=== PATIENT | male | born 1990 | race Caucasian/White ===

== ENCOUNTER 2021-06-20 21:13 | Inpatient (IN) | payer MEDICAID, SELFPAY ==
[2021-06-20 21:15] VITALS: BP 97/54; PULSE 51; RESP 16; TEMP 36; O2SAT 100; BMI 20.4
[2021-06-20] MEDS: Naloxone 2 MG/2 ML Syringe NASAL ×2 (22:06→22:12)
--- NOTE | 2021-06-20 22:10 | ED.RN ---
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 pt was unresponsive lying in bed and pulse ox 91% on R.A. pt received 2nd nasal narcan and pulse ox 100% at this time. pt sitting up and talking.
--- NOTE | 2021-06-20 22:32 | CM.ED ---
SW Note SW Referral : Case Find SW Referral Reason: Detox SW went into patient's room to meet with patient. Patient's mother was in room. She said that patient outside with sister. Mother said that patient uses xanax and percocet. Mother stated that she would pick patient up when he has completed detox. Mother, Jo Ann Arroyo number is [phone]. Mother said that she wants patient's sister, Hermila De, to also be listed and her number is [phone]. Hermila said that [facility] as she and her will not allow him in the house. Hermila said that patient has been using fentanyl also. SW explained in general terms the detox program. SW waited for patient to come back and he came back but then went to the bathroom. Patient was in bathroom excessive amount of time so SW left. Per RN patient used and Narcan was administered. SW did not get opportunity to speak to patient due to his drug use while in the hospital. engineer technical staff will need to call Treatment Navigator for patient. Plan: RAMP program Yoli FLORES
--- NOTE | 2021-06-20 23:21 | EKG12_ITS ---
Test Reason : OVERDOSE Blood Pressure : / mmHG Vent. Rate : 052 BPM Atrial Rate : 052 BPM P-R Int : 120 ms QRS Dur : 094 ms QT Int : 420 ms P-R-T Axes : 074 056 036 degrees QTc Int : 390 ms Sinus bradycardia with sinus arrhythmia Otherwise normal ECG Confirmed by TERESA MOON, EBONI ([id number]), makeup editor SKYE LEON ([id number]) on 06/23/2021 9:36:52 AM Referred By: Confirmed By:EBONI MOORE MD
--- NOTE | 2021-06-20 23:21 | EDS_ITS ---
HPI History of Present Illness Chief Complaint: Substance Abuse Informant: patient Narrative Narrative: 31-year-old male from [place] presents the emergency room asking for detox from opiates and benzos. Patient states that he was a overdose at [facility] yesterday. He left there took some Xanax. Apparently his mom and his sister brought him down here for detox. He tells me that he has not used just prior to arrival or while he is in the department. He states that he is tired of waking up sick and is not pleased that he has lost his children and his relationships with his family PFSH PFSH no medical history Allergy/AdvReac Type Severity Reaction Status Date / Time No Known Allergies Allergy Verified 06/20/21 21:15 no surgical history Social History (Updated 06/20/21 @ 23:[address] Jose Hsu, ) Smoking Status: Current every day smoker tobacco type: cigarettes substance use type: opiates and other details: Benzodiazepines ROS ROS ED Constitutional Constitutional ED: Denies chills or weight loss Eyes Eyes: Denies change in vision or diplopia ENT ENT ED: Denies ear pain, rhinorrhea or sore throat Cardiovascular Cardiovascular: Denies chest pain, orthopnea, palpitations or racing heartbeat Respiratory/Chest Respiratory/Chest: Denies cough, dyspnea or orthopnea Gastrointestinal Gastrointestinal: Denies abdominal pain, diarrhea, nausea or vomiting Genitourinary Genitourinary ED: Denies dysuria, hematuria or urinary frequency Musculoskeletal Musculoskeletal: Denies arthralgias or myalgias Integumentary Denies abscess or rash Neurologic Neurologic: Denies headache(s) or weakness Psychiatric Psychiatric: Denies anxiety, depression, suicidal ideation or suicidal thoughts Endocrine Endocrinology: Denies polydipsia, polyphagia or polyuria Allergic/Immunologic Allergic/Immunologic ED: Denies mouth swelling, tongue swelling or urticaria EXAM Physical Exam Narrative Exam Narrative: Patient has shallow breathing and is falling asleep after speaking 1 or 2 words. Const Vital Signs: 06/20/21 21:15 06/20/21 23:40 Temperature 96.8 F L Temperature Source Temporal Pulse Rate 51 L 52 L Respiratory Rate 16 16 Blood Pressure 97/54 L 98/60 Blood Pressure Mean 68 72 Pulse Ox 100 100 Oxygen Delivery Method Room Air Room Air Positive well nourished and well developed General Appearance ED: well developed HEENT Reports normocephalic, head/scalp atraumatic and moist mucous membranes Eyes Eyes Narrative: Patient has pinpoint pupils Neck no lymphadenopathy, supple and no JVD Resp normal respiratory effort and clear to auscultation bilaterally Cardio regular rate, regular rhythm and no murmurs GI normal to inspection, nondistended, normoactive bowel sounds and non-tender Palpation: soft Back/Spine no CVA tenderness and normal ROM Extremity normal to inspection General Extremety ED: Negative for edema General Extremity: Negative for edema Neuro CN's II-XII intact bilaterally Motor Exam: strength 5/5 throughout Psych mental status grossly normal Mood & Affect: Negative for depressed or tearful Skin no rashes or lesions noted and no wounds MDM MDM MDM Narrative Medical decision making narrative: Patient has pinpoint pupils shallow breathing and falls asleep very easily. I suspect that he recently used an opiate. He received a total of 4 mg of nasal Narcan. This allowed him to be more awake to talk with us. He is agreeable to the rules of the program. We will medically clear him and I will speak with the hospitalist Lab Data Attestation: I reviewed the patient's lab results. Labs: Laboratory Results - last 24 hr 06/20/21 06/20/21 22:00 23:30 WBC 6.7 RBC 4.27 L Hgb 11.8 L Hct 36.6 L MCV 85.7 MCH 27.6 MCHC 32.2 RDW Std Deviation 40.4 RDW Coeff of Kathleen 13.1 Plt Count 279 MPV 10.1 Immature Gran % (Auto) 0.300 Neut % (Auto) 52.7 Lymph % (Auto) 32.7 Ashley % (Auto) 11.2 H Eos % (Auto) 2.8 Baso % (Auto) 0.3 Absolute Neuts (auto) 3.5 Absolute Lymphs (auto) 2.19 Nucleated RBC % 0 Urine Opiates Screen NEGATIVE Urine Methadone Screen NEGATIVE Ur Barbiturates Screen NEGATIVE Ur Phencyclidine Scrn NEGATIVE Ur Amphetamines Screen NEGATIVE U Methamphetamin-MDMA NEGATIVE U Benzodiazepines Scrn POSITIVE H Urine Cocaine Screen NEGATIVE U Cannabinoids Screen POSITIVE H Ur Drug Screen Comment EKG Initial EKG: Attestation: I personally reviewed and interpreted this EKG as follows: Comments: EKG is sinus bradycardia at a rate of 52 bpm. Discharge Plan Dx/Rx/DC Orders Clinical Impression: Opiate abuse, continuous, Benzodiazepine abuse Disposition Disposition: Acute Care Hospital [facility]
[2021-06-20 23:40] VITALS: BP 98/60; PULSE 52; RESP 16; O2SAT 100
[2021-06-20 23:46] LABS: Amphetamine Urine VISTA NEGATIVE (<1000 ng/mL); Barbiturate Urine VISTA NEGATIVE (< 200 ng/mL); Benzodiazepine Urine VISTA POSITIVE (< 200 ng/mL); Cocaine Urine VISTA NEGATIVE (< 300 ng/mL); Ecstacy Urine VISTA NEGATIVE (< 500 ng/mL); Methadone Urine VISTA NEGATIVE (< 300 ng/mL); PCP Urine VISTA NEGATIVE (< 25 ng/mL); THC Urine VISTA POSITIVE (< 50 ng/mL); Vista UDS pH Range 6
[2021-06-20 23:46] LABS: Absolute Lymphocyte Count 2.19 X10^3/uL (0.83-4.51); Absolute Neutrophil Count 3.5 X10^3/uL (2.0-7.7); Basophil# 0.02 X10^3/uL; Basophil% 0.3 % (0-1); Eosinophil# 0.19 X10^3/uL; Eosinophils% 2.8 % (0-5); Hematocrit 36.6 % (40-54); Hemoglobin 11.8 g/dL (13.0-16.5); Lymphocyte # 2.19 X10^3/ul (0.83-4.51); Lymphocyte % 32.7 % (19-41); Mean Corp Hgb Conc 32.2 g/dL (32-36); Mean Corpuscular Hgb 27.6 pg (27.0-32.0); Mean Corpuscular Volume 85.7 fL (80-94); Mean Platelet Vol. 10.1 fl (6.2-12.0); Monocyte# 0.75 X10^3/uL; Monocyte% 11.2 % (0-10); NRBC Flagged by Analyzer 0 % (0-5); Neutrophil # 3.53 X10^3/uL (2.7-7.7); Neutrophil % 52.7 % (47-70); Platelet Count 279 K/mm3 (150-450); RBC Distribution Width CV 13.1 % (11.6-14.6); RBC Distribution Width SD 40.4 fl (35.1-43.9); Red Blood Count 4.27 M/mm3 (4.6-6.2); White Blood Count 6.7 K/mm3 (4.4-11.0)
[2021-06-21] VITALS (10 sets, daily range): BP systolic 81–101; BP diastolic 41–70; PULSE 50–64; RESP 14–18; TEMP 36.1–36.9; O2SAT 94–100; BMI 20.5
[2021-06-21 00:24] LABS: ALB/GLOB Ratio 0.9 RATIO (0.9-2.4); AST(SGOT) 32 U/L (15-37); Alanine Aminotransfer ALT/SGPT 22 U/L (16-61); Albumin, Serum 3.1 g/dL (3.2-5.0); Alkaline Phosphatase 75 U/L (45-117); Anion Gap 4 (5-15); BUN 10 mg/dL (7-18); BUN/Creat Ratio 10.5 RATIO (10-20); Calcium,Total 8.3 mg/dL (8.5-10.1); Chloride 105 mmol/L (98-107); Creatinine, Serum 0.95 mg/dL (0.70-1.30); EST Glomerular Filtration Rate 98 mL/min (>60); Est Glom Filt Rate - Afr Amer 118 mL/min (>60); Estimated Creatinine Clearance 99.16 ml/min; Globulin 3.3 g/dL (2.2-4.2); Glucose 81 mg/dL (74-106); Potassium 3.7 mmol/L (3.5-5.1); Protein, Total 6.4 g/dL (6.4-8.2); Sodium Level 140 mmol/L (136-145)
[2021-06-21 00:57] LABS: Alcohol, Blood (Medical)-Serum < 3.0 mg/dL
[2021-06-21 01:24] LABS: Mucous, Urine 0 SEEN /hpf (<or=2+); Red Blood Cells-Urine 0 SEEN /hpf (0-5); Squamous Epithelial Cells - UA 0 SEEN /hpf (0-5); White Blood Cells 0 SEEN /hpf (0-5)
[2021-06-21 01:39] LABS: Color, Urine Yellow (Yellow); Glucose, Dipstick Normal (Normal); Ketone-Dipstick Negative (Negative); Leukocyte Esterase-Dipstick Negative /ul (Negative); Nitrite-Dipstick Negative (Negative); Occult Blood-Urine Negative /ul (Negative); Protein-Dipstick 15 mg/dl (Negative); Urine Bilirubin Dipstick Negative (Negative); Urine Clarity Clear (Clear); Urine Urobilinogen 1 mg/dl (Normal)
[2021-06-21 02:03] LABS: Bacteria RARE /hpf (None Seen)
--- NOTE | 2021-06-21 03:01 | HP.PCM.HOS_ITS ---
HPI - General General Date of Admission: 06/21/21 HPI Narrative KIRK MOONEY, is a 31 M with history of chronic opioid use, fentanyl and snorting came to ER for acute opioid withdrawal treatment. Uses fentanyl snorting on a regular basis and takes 2 mg of Xanax once a month or sometimes twice a month. Patient was brought to ER by his mother and sister for treatment of withdrawal symptoms. Patient is having nasal congestion, sinus drainage. Patient failed treatment about 2 years ago in [place]. His vitals in the ER significant for bradycardia, heart rate 51/min. Labs reviewed. U tox positive of cannabinoids. Twelve-lead EKG sinus bradycardia at 52 bpm. [facility] Medical History Smoker Substance abuse Home Medications buprenorphine-naloxone 2 tab SUBLINGUAL DAILY 06/21/21 [History Last Taken 06/20/21] Allergy/AdvReac Type Severity Reaction Status Date / Time No Known Allergies Allergy Verified 06/20/21 21:15 Social History Smoking Status: Current every day smoker tobacco type: cigarettes substance use type: opiates and other details: Benzodiazepines ROS ROS Narrative Constitutional: Reports fatigue and weakness HEENT: Nasal congestion. Conjunctival irritation. Respiratory/Chest: Denies chest pain, shortness of breath at rest or with exertion Gastrointestinal: Denies coffee ground emesis, hematemesis or vomiting Genitourinary: Denies burning urination or new urinary tract symptoms Musculoskeletal: Diffuse muscle aches and pain Neurologic: Denies seizure-like activity skin: No ulcer. No rash Endocrinology: Reports systems reviewed and no addt'l complaints, except as documented Hematologic/Lymphatic: Reports systems reviewed and no addt'l complaints, except as documented Rest 12 ROS are negative except as mentioned in HPI Vital Signs Vital Signs Vital Signs: 06/20/21 21:15 06/20/21 23:40 06/21/21 01:53 Temperature 96.8 F L 97 F L Temperature Source Temporal Temporal Pulse Rate 51 L 52 L 58 L Respiratory Rate 16 16 14 Blood Pressure 97/54 L 98/60 92/58 L Blood Pressure Mean 68 72 69 Blood Pressure Source Blood Pressure Position Blood Pressure Location Pulse Ox 100 100 96 Oxygen Delivery Method Room Air Room Air 06/21/21 02:45 Temperature 98.5 F Temperature Source Oral Pulse Rate 52 L Respiratory Rate 16 Blood Pressure 91/58 L Blood Pressure Mean 69 Blood Pressure Source Monitor Blood Pressure Position Supine Blood Pressure Location Right Arm Pulse Ox 100 Oxygen Delivery Method Room Air Weight Weight: 138 lb 14.259 oz Body Mass Index (BMI) 20.5 Physical Exam Narrative General: Alert, Oriented x3, Cooperative HEENT: Atraumatic, PERRLA, EOMI, Normocephalic Oral: Left and right lower molar dental caries. Neck: Supple, No JVD, Negative Carotid Bruits Lungs: Air entry equal in bilateral lung bases. No crepitation/rhonchi Cardiovascular: Regular rate, Regular Rhythm, Normal S1, Normal S2, No murmurs Abdomen: Bowel Sounds Present, Soft, Non Tender, Non-Distended : No renal angle tenderness. No suprapubic tenderness. Extremities: No edema, Capillary Refill Less than 3 Seconds Skin: No rashes, No breakdown Musculoskeletal: No Tenderness to Palpation of Joints or Extremities Neurological: Cranial nerves II-XII grossly intact, DTR 2+/4 and Symmetrical, Neuro grossly intact Psych/Mental Status: Restless and anxious. Results Lab / Micro Data Result Diagrams: 06/20/21 23:30 06/20/21 23:30 Labs: Laboratory Results - last 24 hr 06/20/21 22:00: Urine Opiates Screen NEGATIVE, Urine Methadone Screen NEGATIVE, Ur Barbiturates Screen NEGATIVE, Ur Phencyclidine Scrn NEGATIVE, Ur Amphetamines Screen NEGATIVE, U Methamphetamin-MDMA NEGATIVE, U Benzodiazepines Scrn POSITIVE H, Urine Cocaine Screen NEGATIVE, U Cannabinoids Screen POSITIVE H, Ur Drug Screen Comment 06/20/21 22:00: Urine Color Yellow, Urine Clarity Clear, Urine pH 6.0, Ur Specific [place] 1.020, Urine Protein 15 H, Urine Glucose (UA) Normal, Urine Ketones Negative, Urine Occult Blood Negative, Urine Nitrite Negative, Urine Bilirubin Negative, Urine Urobilinogen 1 H, Ur Leukocyte Esterase Negative, Urine RBC 0 SEEN, Urine WBC 0 SEEN, Ur Squamous Epith Cells 0 SEEN, Urine Bacteria RARE, Urine Mucus 0 SEEN 06/20/21 23:30: WBC 6.7, RBC 4.27 L, Hgb 11.8 L, Hct 36.6 L, MCV 85.7, MCH 27.6, MCHC 32.2, RDW Std Deviation 40.4, RDW Coeff of Kathleen 13.1, Plt Count 279, MPV 10.1, Immature Gran % (Auto) 0.300, Neut % (Auto) 52.7, Lymph % (Auto) 32.7, Laurel % (Auto) 11.2 H, Eos % (Auto) 2.8, Baso % (Auto) 0.3, Absolute Neuts (auto) 3.5, Absolute Lymphs (auto) 2.19, Nucleated RBC % 0 06/20/21 23:30: Sodium 140, Potassium 3.7, Chloride 105, Carbon Dioxide 31.0, Anion Gap 4 L, BUN 10, Creatinine 0.95, Estim Creat Clear Calc 99.16, Est GFR (MDRD) Af Amer 118, Est GFR (MDRD) Non-Af 98, BUN/Creatinine Ratio 10.5, Glucose 81, Calcium 8.3 L, Total Bilirubin 0.30, AST 32, ALT 22, Alkaline Phosphatase 75, Total Protein 6.4, Albumin 3.1 L, Globulin 3.3, Albumin/Globulin Ratio 0.9 06/20/21 23:30: Ethyl Alcohol < 3.0 Assessment & Plan Assessment/Plan (1) Acute hyperactive opioid withdrawal delirium: PLAN: This is a 31-year-old gentleman came for medical stabilization of acute opioid withdrawal syndrome 1. Acute opioid withdrawal syndrome with history of chronic opioid use disorder with dependence and tolerance: Patient is being admitted in bedside. On buprenorphine based other supportive medications for medical stabilization of withdrawal syndrome. Patient counseled to quit opioid use. Consult 184 rehab plan. 2. Chronic benzodiazepine use disorder: He uses 2 mg Xanax once a month sometimes twice a month. Did not warrant medical treatment. 3. Chronic marijuana use and cigarette smoking: On nicotine patch. VTE prophylaxis: Low risk. No prophylaxis indicated. Early ambulation encouraged Charges/Coding Visit Charges Inpatient E&M: 36538 Init Hosp L3
[2021-06-21 04:06] LABS: International Normalized Ratio 1.1; Prothrombin Time (Protime)PT. 13.1 SECONDS (11.7-14.9)
[2021-06-21] MEDS: hydrOXYzine PAM 25 MG Capsule 50 MG PO ×2 (09:38→17:40)
[2021-06-21] MEDS: Dicyclomine 10 MG Capsule 20 MG PO (09:39)
[2021-06-21] MEDS: cloNIDine HCl 0.1 MG Tablet PO (09:39)
[2021-06-21] MEDS: Methocarbamol 750 MG Tablet 1500 MG PO ×2 (09:39→17:40)
[2021-06-21] MEDS: Buprenorphine HCl 2 MG TAB.SUBL SL ×2 (09:43→17:40)
--- NOTE | 2021-06-21 10:11 | PCM.HOSP.N ---
Hospitalist Note Patient is a 31-year-old male who presented to emergency department at [facility] early on the a.m. of 06/21/2021 requesting opiate detox. He admitted to using fentanyl by snorting it on a regular basis. He denies any IV drug use ever. He also admitted to occasionally using Xanax. He has been detoxed before and his last detox was approximately 2 years ago at [place]. His talk screen was positive for benzodiazepines and cannabis. He was placed on a buprenorphine taper and supportive medications per order set were in place. He will be seen by 180 for ongoing plan tomorrow. He denies any current issues other than some chills. He was not treated for benzodiazepine withdrawal as per his admission his use is not frequent. Monitor closely for signs or symptoms of benzo withdrawal. Diagnoses: Acute opiate withdrawal Opiate abuse Benzodiazepine abuse THC abuse Tobacco abuse
[2021-06-21] MEDS: Ibuprofen 600 MG Tablet PO (20:53)
[2021-06-21] MEDS: traZODone 100 MG Tablet PO (20:54)
[2021-06-22] MEDS: Buprenorphine HCl 2 MG TAB.SUBL SL ×3 (01:42→18:01)
[2021-06-22 01:45] VITALS: BP 92/48; PULSE 75; RESP 16; TEMP 36.4; O2SAT 99
[2021-06-22 09:42] VITALS: BP 93/46; PULSE 60; RESP 16; TEMP 36.5; O2SAT 99
--- NOTE | 2021-06-22 10:45 | ADDICTION ---
This worker met with PT to discuss d/c plans. Client will admit to [facility] residential facility for in-patient substance use treatment and counseling services on 06/24 @10am. PT did not indicate a need for transportation post d/c from [facility]. PT reports his mother or aunt will transport.
--- NOTE | 2021-06-22 15:20 | CHAPLAIN ---
Type of Pastoral Visit _x__ Initial Visit ___ Follow-up Visit ___ On-call Visit ___ General Patient Visit ___ Spiritual Assessment ___ Family Conference ___ Bereavement ___ Rapid Response ___ Code Blue ___ Other (describe below) Pastoral Care Referral From _x__ Patient ___ Family ___ Nurse ___ Physician ___ [place] ___ Java Sdet ___ Other (describe below) Sacrament/Intervention _x__ Active listening ___ Anointing ___ Christianity ___ Bereavement ___ Communion ___ Annmarie exploration ___ _x__ Life review _x__ Prayer ___ Reconciliation ___ Sacrament of Sick _x__ Supportive presence ___ Wedding ___ Other (describe below) Pastoral Comments patient gives long explanation of his recent life and drug use; pt has grief from recent of father and break-up with girlfriend; pt has children and wants to be a father to them; pt has family support and a friend from [facility] who has gone through recovery himself; pt open to talk and to receive prayer and presence; pt requests follow up visit tomorrow
[2021-06-22 16:17] VITALS: BP 91/48; PULSE 56; RESP 16; TEMP 36.7; O2SAT 98
--- NOTE | 2021-06-22 18:08 | NURSING ---
PANDEMIC DOCUMENTATION INITIATED Date: 06/22/2021 Time: 1800
--- NOTE | 2021-06-22 19:06 | PCM.PN.HOSP ---
Subjective Subjective Follow-up on acute opioid withdrawal; Patient was seen and examined. No new complaints. Objective Data Objective Data Vital Signs: Vital Signs Temp Pulse Resp BP Pulse Ox 98.1 F 56 L 16 91/48 L 98 06/22/21 16:17 06/22/21 16:17 06/22/21 16:17 06/22/21 16:17 06/22/21 16:17 Oxygen Delivery Method Room Air Weight: 63 kg Body Mass Index (BMI) 20.5 Intake & Output: Intake and Output for Last 24 Hours 06/20/21 06/21/21 06/22/21 23:59 23:59 23:59 Intake Total 730 / 730 Balance 730 / 730 Medical Nutrition Assessment Dietitian: Malnutrition Criteria Met Start: 06/21/21 13:41 Freq: Status: Active Protocol: Document 06/21/21 13:46 AG (Rec: 06/21/21 13:48 AG [id number]) Nutrition Malnutrition Evidence of Malnutrition Exists No Clinical Problem Unintended Weight Loss Etiology r/t decreased energy intake with drug abuse Signs/Symptoms as evidenced by unintentional wt loss of 4#/2.8% x 2 months Status Active Problem Recommendation Dietitian Recommendations/Changes continue regular diet, snacks TID as tolerated; ensure enlive 120mL 4x/day if PO intake declines and/or wt loss occurs. Lab / Micro Data Result Diagrams: 06/20/21 23:30 06/20/21 23:30 Physical Exam Narrative General: Alert, Oriented x3, Cooperative HEENT: Atraumatic, PERRLA, EOMI, Normocephalic Oral: Left and right lower molar dental caries. Neck: Supple, No JVD, Negative Carotid Bruits Lungs: Air entry equal in bilateral lung bases. No crepitation/rhonchi Cardiovascular: Regular rate, Regular Rhythm, Normal S1, Normal S2, No murmurs Abdomen: Bowel Sounds Present, Soft, Non Tender, Non-Distended : No renal angle tenderness. No suprapubic tenderness. Extremities: No edema Assessment & Plan Assessment/Plan (1) Acute hyperactive opioid withdrawal delirium: PLAN: 1. Acute opioid withdrawal, improving continue on Subutex withdrawal protocol 2. Polysubstance use disorder, advised to quit 3. Nicotine dependence, on replacement 4. DVT prophylaxis?low risk, early ambulation recommended Charges/Coding Visit Charges Inpatient E&M: 48485 Subs Hosp L2
[2021-06-22 20:12] VITALS: BP 102/57; PULSE 50; RESP 16; TEMP 36.7; O2SAT 100
[2021-06-22] MEDS: Methocarbamol 750 MG Tablet 1500 MG PO (20:21)
[2021-06-22] MEDS: Ibuprofen 600 MG Tablet PO (20:22)
[2021-06-22] MEDS: hydrOXYzine PAM 25 MG Capsule 50 MG PO (20:22)
[2021-06-22] MEDS: traZODone 100 MG Tablet PO (20:22)
[2021-06-22] MEDS: Gabapentin 300 MG Capsule PO (20:22)
[2021-06-23 02:30] VITALS: BP 94/54; PULSE 50; RESP 16; TEMP 36.6; O2SAT 100
[2021-06-23] MEDS: Methocarbamol 750 MG Tablet 1500 MG PO ×2 (02:35→14:59)
[2021-06-23] MEDS: hydrOXYzine PAM 25 MG Capsule 50 MG PO ×2 (02:35→15:00)
[2021-06-23] MEDS: Buprenorphine HCl 2 MG TAB.SUBL SL ×3 (02:35→22:10)
[2021-06-23] MEDS: Nicotine Polacrilex 2 MG GUM PO ×2 (02:38→15:00)
[2021-06-23 06:07] VITALS: BP 95/56; PULSE 49; RESP 14; TEMP 36.5; O2SAT 100
[2021-06-23] MEDS: Gabapentin 300 MG Capsule PO (06:09)
[2021-06-23 10:08] VITALS: BP 104/54; PULSE 69; RESP 18; TEMP 36.5; O2SAT 99
--- NOTE | 2021-06-23 10:19 | ADDICTION ---
This securities underwriter spoke with patients area field person to notify to set up transportation to [facility]. Sarika Felipe will be here at 9:00am on 06/24 to transport him to [facility] in [place] by 10am.
[2021-06-23] MEDS: Ibuprofen 600 MG Tablet PO ×2 (10:21→20:22)
--- NOTE | 2021-06-23 13:46 | PCM.PN.HOSP ---
Subjective Subjective Patient examined. Denies any new complaint. No acute events Objective Data Objective Data Vital Signs: Vital Signs Temp Pulse Resp BP Pulse Ox 97.7 F L 69 18 104/54 L 99 06/23/21 10:08 06/23/21 10:08 06/23/21 10:08 06/23/21 10:08 06/23/21 10:08 Oxygen Delivery Method Room Air Weight: 63 kg Body Mass Index (BMI) 20.5 Intake & Output: Intake and Output for Last 24 Hours 06/21/21 06/22/21 06/23/21 23:59 23:59 23:59 Intake Total 730 / 730 Balance 730 / 730 Medical Nutrition Assessment Dietitian: Malnutrition Criteria Met Start: 06/21/21 13:41 Freq: Status: Active Protocol: Document 06/21/21 13:46 AG (Rec: 06/21/21 13:48 AG [id number]) Nutrition Malnutrition Evidence of Malnutrition Exists No Clinical Problem Unintended Weight Loss Etiology r/t decreased energy intake with drug abuse Signs/Symptoms as evidenced by unintentional wt loss of 4#/2.8% x 2 months Status Active Problem Recommendation Dietitian Recommendations/Changes continue regular diet, snacks TID as tolerated; ensure enlive 120mL 4x/day if PO intake declines and/or wt loss occurs. Lab / Micro Data Result Diagrams: 06/20/21 23:30 06/20/21 23:30 Physical Exam Narrative General: Alert, Oriented x3, Cooperative HEENT: Atraumatic, PERRLA, EOMI, Normocephalic Oral: Left and right lower molar dental caries. Neck: Supple, No JVD, Negative Carotid Bruits Lungs: Air entry equal in bilateral lung bases. No crepitation/rhonchi Cardiovascular: Regular rate, Regular Rhythm, Normal S1, Normal S2, No murmurs Abdomen: Bowel Sounds Present, Soft, Non Tender, Non-Distended : No renal angle tenderness. No suprapubic tenderness. Extremities: No edema Assessment & Plan Assessment/Plan (1) Acute hyperactive opioid withdrawal delirium: PLAN: 1. Acute opioid withdrawal, improving continue on Subutex withdrawal protocol 2. Polysubstance use disorder, advised to quit 3. Nicotine dependence, on replacement 4. DVT prophylaxis?low risk, early ambulation recommended Charges/Coding Visit Charges Inpatient E&M: 80525 Subs Hosp L2
[2021-06-23 14:51] VITALS: BP 106/60; PULSE 61; RESP 16; TEMP 36.7; O2SAT 99
--- NOTE | 2021-06-23 14:55 | CHAPLAIN ---
Type of Pastoral Visit ___ Initial Visit _x__ Follow-up Visit ___ On-call Visit ___ General Patient Visit ___ Spiritual Assessment ___ Family Conference ___ Bereavement ___ Rapid Response ___ Code Blue ___ Other (describe below) Pastoral Care Referral From _x__ Patient ___ Family ___ Nurse ___ Physician ___ Survey Rodman ___ Diamond Expert ___ Other (describe below) Sacrament/Intervention _x__ Active listening ___ Anointing ___ Methodist ___ Bereavement ___ Communion _x__ Annmarie exploration ___ _x__ Life review _x__ Prayer ___ Reconciliation ___ Sacrament of Sick _x__ Supportive presence ___ Wedding ___ Other (describe below) Pastoral Comments patient requested this visit and is very talkative; pt wants to get to [facility] soon as possible and reviews his plan for recovery; pt talks about his relationships and about those in his life that have from overdoses; pt has children which motivates him to seek recovery; pt open to prayer support and emotional encouragement
[2021-06-23 19:52] VITALS: BP 102/59; PULSE 55; RESP 20; TEMP 36.8; O2SAT 100
[2021-06-23 19:59] VITALS: PULSE 50
[2021-06-23] MEDS: traZODone 100 MG Tablet PO (22:10)
[2021-06-24 01:59] VITALS: BP 95/51; PULSE 57; RESP 16; TEMP 36.5; O2SAT 100
[2021-06-24 06:09] VITALS: BP 99/61; PULSE 51; RESP 20; TEMP 36.6; O2SAT 100
--- NOTE | 2021-06-24 07:22 | DCINST_ITS ---
Discharge Instructions Diet Discharge Diet: No restrictions Activity Discharge Activity: Return to Normal Activity Follow Up Care Test Results: Test results from this visit will be discussed in further detail at your follow-up appointment, if applicable. Discharge Plan Admission Admit Date/Time: 06/21/21 01:16 Primary Reason for Your Visit: Acute opioid withdrawal Attending Provider: Ekaterina Sands Primary Care Provider: Elias Physician,No Primary Instructions Additional Instructions / Restrictions: You are strongly advised to continue to avoid use of opioids. You are also advised to stop smoking. Follow-up with your outpatient drug rehab program as scheduled. Discharge Orders/Prescriptions Prescriptions: New nicotine (polacrilex) 2 mg Gum 2 mg PO Q2H PRN PRN (Reason: SMOKING CESSATION) 30 Days Qty: 100 RF: 0 nicotine 21 mg/24 hr Patch 24 Hour 21 mg transdermal DAILY 30 Days Qty: 30 RF: 0 Discontinued buprenorphine-naloxone 8-2 mg Tablet, Sublingual 2 tab SUBLINGUAL DAILY RF: 0 Referrals / Follow Up: Care Physician,No Primary [Primary Care Provider] - Within 2 Weeks Disposition Disposition (needs filled in before D/C Order can be placed): Home, Self Care
--- NOTE | 2021-06-24 07:24 | PCM.DC.SUM ---
Providers Date of Admission: 06/21/21 Date of Discharge: 06/24/21 Primary Care Physician: No Primary Care Phys Reason For Visit: ACUTE OPIOID WITHDRAWAL Diagnosis Discharge Diagnosis (1) Acute hyperactive opioid withdrawal delirium: Status: Acute Code(s): F11.23 - Opioid dependence with withdrawal Medications at Discharge Home Medications nicotine 21 mg TRANSDERMAL DAILY 30 Days #30 ea 06/24/21 nicotine (polacrilex) 2 mg PO Q2H PRN PRN 30 Days #100 ea 06/24/21 Hospital Course Operations None Procedures None Summary of Care Provided Minutes Spent on Discharge: 25 Hospital Course: 31-year-old with polysubstance use disorder, history of chronic opioid use with fentanyl use comes in requesting for medical stabilization for acute opioid withdrawal. Patient admits to snorting fentanyl on a regular basis and using 2 mg of Xanax once a month. Patient was admitted with withdrawal symptoms of nasal congestion and sinus drainage. His urine tox was positive for cannabinoid. [facility] and managed on the opiate withdrawal protocol. Patient did very well on that. He was seen by the [employer] line worker. He was discharged to inpatient rehab facility. Physical Exam Narrative General: Alert, Oriented x3, Cooperative HEENT: Atraumatic, PERRLA, EOMI, Normocephalic Oral: Left and right lower molar dental caries. Neck: Supple, No JVD, Negative Carotid Bruits Lungs: Air entry equal in bilateral lung bases. No crepitation/rhonchi Cardiovascular: Regular rate, Regular Rhythm, Normal S1, Normal S2, No murmurs Abdomen: Bowel Sounds Present, Soft, Non Tender, Non-Distended : No renal angle tenderness. No suprapubic tenderness. Extremities: No edema Medical Records Data Medical Nutrition Assessment Dietitian: Malnutrition Criteria Met Start: 06/21/21 13:41 Freq: Status: Active Protocol: Document 06/21/21 13:46 AG (Rec: 06/21/21 13:48 AG [id number]) Nutrition Malnutrition Evidence of Malnutrition Exists No Clinical Problem Unintended Weight Loss Etiology r/t decreased energy intake with drug abuse Signs/Symptoms as evidenced by unintentional wt loss of 4#/2.8% x 2 months Status Active Problem Recommendation Dietitian Recommendations/Changes continue regular diet, snacks TID as tolerated; ensure enlive 120mL 4x/day if PO intake declines and/or wt loss occurs. Weight / BMI Weight Weight: 63 kg Body Mass Index (BMI) 20.5 ABG / Lab / Microbiology Data Result Diagrams: 06/20/21 23:30 06/20/21 23:30 D/C Instructions Discharge Diet: No restrictions Meaningful Use Info Meaningful Use Diagnoses (Choose all that apply): None applicable Discharge Plan Admission Admit Date/Time: 06/21/21 01:16 Primary Reason for Your Visit: Acute opioid withdrawal Attending Provider: Ekaterina Sands Primary Care Provider: Care Physician,No Primary Instructions Additional Instructions / Restrictions: You are strongly advised to continue to avoid use of opioids. You are also advised to stop smoking. Follow-up with your outpatient drug rehab program as scheduled. Discharge Orders/Prescriptions Prescriptions: New nicotine (polacrilex) 2 mg Gum 2 mg PO Q2H PRN PRN (Reason: SMOKING CESSATION) 30 Days Qty: 100 RF: 0 nicotine 21 mg/24 hr Patch 24 Hour 21 mg transdermal DAILY 30 Days Qty: 30 RF: 0 Discontinued buprenorphine-naloxone 8-2 mg Tablet, Sublingual 2 tab SUBLINGUAL DAILY RF: 0 Referrals / Follow Up: Care Physician,No Primary [Primary Care Provider] - Within 2 Weeks Disposition Disposition (needs filled in before D/C Order can be placed): Home, Self Care Charges/Coding Visit Charges Inpatient E&M: [id number] Disch Hosp
== END 2021-06-24 08:45 | disposition home or self-care (01) | DRG 773 ==
LOC: ED 06-21 01:27 → MS3 06-21 01:32
PROVIDERS: Admitting Provider Internal Medicine; Emergency Provider Emergency Medicine; Visit Provider Internal Medicine
DX: F11.23 Opioid dependence with withdrawal (principal); F13.10 Sedative, hypnotic or anxiolytic abuse, uncomplicated; F12.10 Cannabis abuse, uncomplicated; F17.210 Nicotine dependence, cigarettes, uncomplicated
CPT/HCPCS: 36415; 80053; 80307; 81001; 82077; 85025; 85610; 93005; 97802; 99283

== ENCOUNTER 2021-10-03 10:52 | Emergency (ER) | payer MEDICAID, SELFPAY ==
[2021-10-03 10:53] VITALS: BP 117/44; PULSE 81; RESP 18; TEMP 36.7; O2SAT 100; BMI 20.3
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
--- NOTE | 2021-10-03 11:50 | RAD_ITS ---
STUDY: X-RAY - LEFT HUMERUS REASON FOR EXAM: Male, 31 years old. Fracture follow-up TECHNIQUE: 2 view(s) of the humerus. COMPARISON: None. FINDINGS: Oblique displaced fracture of the mid third of the humeral shaft. No evidence of dislocation. There is no demonstrated soft tissue abnormality. RAD/Humerus min 2 Views IMPRESSION: Fracture of the humeral shaft. Electronically Signed: Jaquan Vicente, at 12:00 EST Tel , Service support ,
--- NOTE | 2021-10-03 12:26 | CM.ED ---
Addendum entered by Franny Blakely 10/03/21 13:05: Received call from Treatment NavigatorLaura. Call was transferred to patient. Patient has been advised of beds at [facility]. Nursing has updated ER physician. Original Note: Social Work Referral Source: pump house technician Informed no detox beds available. Call to Treatment Navigator for assistance in finding detox for patient. No answer, left message. Awaiting call back at this time. Raven Blakely, [employer] SET UP OPERATOR, [employer] FINAL INSPECTOR
[2021-10-03 13:13] VITALS: RESP 16
[2021-10-03 14:01] VITALS: PULSE 76; RESP 18; O2SAT 99
--- NOTE | 2021-10-03 14:02 | ED.RN ---
patient has been informed, the hospital is out of Detox beds at this moment. patient has spoken to one eighty counselor and has been advised to go to [facility] for detox. Patient in waiting room waiting for ride.
== END 2021-10-03 14:03 | disposition home or self-care (01) ==
PROVIDERS: Emergency Provider Emergency Medicine
DX: F11.10 Opioid abuse, uncomplicated (principal); F13.10 Sedative, hypnotic or anxiolytic abuse, uncomplicated; J34.89 Other specified disorders of nose and nasal sinuses; R19.7 Diarrhea, unspecified; S42.302D Unspecified fracture of shaft of humerus, left arm, subsequent encounter for fracture with routine healing; Y35.93XD Legal intervention, means unspecified, suspect injured, subsequent encounter; F17.210 Nicotine dependence, cigarettes, uncomplicated
CPT/HCPCS: 36415; 73060; 99281